=== PATIENT | male | born 1965 | race Caucasian/White ===

== ENCOUNTER 2017-08-15 07:36 | Day surgery (SDC) | payer OTHER ==
--- NOTE | 2017-08-11 16:23 | RAD REPORT ---
EXAM DESCRIPTION: RAD - Chest Pa And Lat (2 Views) - 08/11/2017 4:09 pm CLINICAL HISTORY: Preop chest, pending cardioversion COMPARISON: May 12, 2016 TECHNIQUE: PA and lateral views of the chest were obtained. FINDINGS: The lungs are clear. Heart size is normal and central vasculature is within normal limit s. No pleural effusion or pneumothorax seen. No acute bony finding noted. 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 No aortic abnormality. IMPRESSION: No acute cardiopulmonary process. No significant change from comparison.
[2017-08-11 16:35] LABS: Absolute Lymphocytes (CBC) 3.1 K/uL (0.7-4.9); Absolute Monocytes 0.5 K/uL (0.1-1.3); Absolute Neutrophil 2.9 K/uL (1.8-8.0); Basophils % 0.4 % (0-1.3); Hematocrit 43.6 % (39.6-49.0); Lymphocytes % 46.3 % (15.3-44.8); MCH 29.6 pg (27.0-35.0); MCV 89.6 fL (80-100); MPV 8.7 fL (7.6-11.3); Monocytes % 7.6 % (3.3-12.3); RBC Red Blood Cell Count 4.87 M/uL (4.33-5.43)
[2017-08-11 16:37] LABS: Protime INR 1.39
--- OUTSIDE RECORDS SUMMARY | 2017-08-15 07:38 | XMS REPORT | Clinical Summary ---
:1965 Author Organization [facility] Address [address] [place] [id number] Care Team Providers Name Role Phone Jarod Petty MD Primary Care Provider Allergies Active Allergy Reactions Severity Noted Date Comments Propoxyphene N-Acetaminophen 01/12/2016 Current Medications Prescription Sig. Disp. Refills Start Date End Date Status escitalopram Take 20 mg by 3 01/17/2016 Active (LEXAPRO) 20 MG mouth 2 (two) tablet times a day. primidone (MYSOLINE) 5 tablets 5 12/23/2015 Active 50 MG tablet daily. zolpidem (AMBIEN) 5 Take 5 mg by Active MG tablet mouth nightly. cyclobenzaprine Take 10 mg by 0 02/24/2016 Active (FLEXERIL) 10 mg mouth 3 tablet (three) times a day. meloxicam (MOBIC) 15 03/23/2016 Active mg tablet primidone (MYSOLINE) TAKE 1 TABLET 90 tablet 5 12/13/2016 Active 250 MG tablet BY MOUTH AT BEDTIME primidone (MYSOLINE) Take 1 tablet 90 tablet 3 02/19/2016 Discontinued 250 MG tablet (250 mg 7 total) by mouth nightly. 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 Essential tremor 01/12/2016 Encounters Date Type Specialty Care Team Description 12/13/2016 Refill Neurology Sweetie Pedroza MD after 08/14/2016 Family History Medical History Relation Name Comments Leukemia Father Other Father Cardiopulmonary bypass operation/double bypass Tremor Maternal Grandmother Tremor Maternal Uncle Tremor Mother Other Other family history of tremor involving his maternal grandmother, mother and her fraternal twin brother, as well as his eldest son Tremor Son Relation Name Status Comments Father Maternal Grandmother Maternal Uncle Mother Other Son Social History Tobacco Use Types Packs/Day Years Used Date Never Smoker Alcohol Use Drinks/Week oz/Week Comments No none Sex Assigned at Date Recorded Not on file Last Filed Vital Signs Not on file Plan of Treatment Health Maintenance Due Date Last Done Comments COLON CANCER SCREENING 02/28/2014 SHINGRIX VACCINE (#1) 02/28/2014 INFLUENZA VACCINE 10/12/2017 Results Not on fileafter 08/14/2016 Insurance Payer Benefit Plan / Group Subscriber ID Type Phone Address AET[employer] AET[employer] PPO OPEN CHOICE xxxxxxxxx PPO y [phone] [address]
[2017-08-15] MEDS ORDERED: NA CHLORIDE 0.9% 500 ML ONE (08:54)
[2017-08-15] MEDS ORDERED: MIDAZOLAM HCL 2 MG/2 ML INJ ONE ×2 (09:18→09:28)
--- NOTE | 2017-08-15 11:05 | OP ---
Surgeon: Vince Dash MD Procedure: Direct current cardioversion. Indication: Atrial fib. Procedure In Detail: The patient was brought to the cardiac laborer drying department fasting. There was no prep or drape. He had an IV running, so we could administer drugs. Anterior-posterior paddles were placed o n his chest. Informed consent was done. It was confirmed that he had received Xarelto 12 hours befo re the procedure and that he had nothing to eat or drink this morning. He was sedated with Versed, t itrated to an adequate level of sedation, 12.5 mg was used. A single shock was administered, 200 ana les synchronized the QRS complex. This successfully changed his rhythm to sinus. He will be dischar ge taking his present medicines and we will consider antiarrhythmic drug therapy if AFib recurs. ETHAN/PIPPA Voice ID: [id number] Report ID: [id number]
--- NOTE | 2017-08-15 13:20 | EKG ---
Test Date: 2017-08-15 Test Time: 09:34:00 Supervisor Paper Machine: VERONICA MEASUREMENT RESULTS: Intervals: Rate: 73 MI: 200 QRSD: 84 QT: 400 QTc: 440 [place]: P: 7 MI: 200 QRS: 59 T: 32 INTERPRETIVE STATEMENTS: Sinus rhythm with marked sinus arrhythmia Otherwise normal ECG Compared to ECG 03/09/2005 12:31:51 no significant change from previous ECG Electronically Signed On 08-15-17 13:19:42 CDT by Vince Dash
== END 2017-08-15 10:55 | disposition home or self-care (01) ==
LOC: CCL 07:36
PROVIDERS: ATTEND Internal Medicine
PROC: 5A2204Z Restoration of Cardiac Rhythm, Single (ICD-10-PCS; principal; 2017-08-15)
DX: I48.2 Chronic atrial fibrillation (principal); Z79.01 Long term (current) use of anticoagulants
CPT/HCPCS: 36415; 71046; 80048; 85025; 85610; 85730; 92960; 93005; J2250

== ENCOUNTER 2017-09-05 07:10 | Day surgery (SDC) | payer OTHER ==
--- OUTSIDE RECORDS SUMMARY | 2017-09-05 07:22 | XMS REPORT | Clinical Summary ---
:1965 Author Organization [facility] Address [address] [place] [address] Care Team Providers Name Role Phone Jarod [...] 12/13/2016 Refill Neurology Sweetie Pedroza MD after 09/04/2016 Family History Medical History Relation Name Comments [...] INFLUENZA VACCINE 10/12/2017 Results Not on fileafter 09/04/2016 Insurance Payer Benefit Plan / Group Subscriber ID Type Phone Address [employer]ETNA AET[employer] PPO OPEN CHOICE xxxxxxxxx PPO y [phone] [address]
[2017-09-05] MEDS ORDERED: NA CHLORIDE 0.9% 500 ML ONE (07:30)
[2017-09-05] MEDS ORDERED: MIDAZOLAM HCL 5 MG/5 ML INJ ONE (07:49)
[2017-09-05] MEDS ORDERED: MIDAZOLAM HCL 2 MG/2 ML INJ ONE (07:56)
--- NOTE | 2017-09-05 09:30 | EKG ---
Test Date: 2017-09-05 Test Time: 07:59:20 Manufacturing Executive: VERONICA MEASUREMENT RESULTS: Intervals: Rate: 67 AK: 192 QRSD: 78 QT: 412 QTc: 435 Kemp: P: 16 AK: 192 QRS: 55 T: 54 INTERPRETIVE STATEMENTS: Normal sinus rhythm Normal ECG Compared to ECG 08/15/2017 09:34:00 Sinus arrhythmia no longer present Electronically Signed On 09-05-17 09:30:23 CDT by Vince Dash
--- NOTE | 2017-09-05 19:02 | OP ---
Surgeon: Vince Dash MD Procedure: Direct current cardioversion. Indication: Recurrent atrial fibrillation. Procedure In Detail: The patient was loaded on Multaq, anticoagulated with Xarelto. He came to the matlab developer in a fasting state and gave informed consent. He was sedated with Versed 10 mg titrated to an adequate level of sedation. A single shock 150 joules through anterior-posterior paddles was admi nistered. This resulted in sinus rhythm, successful procedure, and no complications. ETHAN/PIPPA Voice ID: [id number] Report ID: [id number]
== END 2017-09-05 09:40 | disposition home or self-care (01) ==
LOC: CCL 07:10
PROVIDERS: ATTEND Internal Medicine
PROC: 5A2204Z Restoration of Cardiac Rhythm, Single (ICD-10-PCS; principal; 2017-09-05)
DX: I48.2 Chronic atrial fibrillation (principal); Z79.01 Long term (current) use of anticoagulants
CPT/HCPCS: 92960; 93005; J2250

== ENCOUNTER 2018-01-30 08:10 | Day surgery (SDC) | payer OTHER ==
[2018-01-26 13:31] LABS: Potassium 3.6 mmol/L (3.5-5.1)
[2018-01-26 13:42] LABS: Protime INR 1.84
[2018-01-26 15:02] LABS: Absolute Lymphocytes (CBC) 2.7 K/uL (0.7-4.9); Absolute Monocytes 0.5 K/uL (0.1-1.3); Absolute Neutrophil 2.8 K/uL (1.8-8.0); Basophils % 0.6 % (0-1.3); Eosinophils % 1.6 % (0-4.4); Hematocrit 41.8 % (39.6-49.0); Lymphocytes % 44.8 % (15.3-44.8); MCH 30.5 pg (27.0-35.0); MCV 91.2 fL (80-100); MPV 8.9 fL (7.6-11.3); Monocytes % 7.6 % (3.3-12.3); RBC Red Blood Cell Count 4.58 M/uL (4.33-5.43)
--- OUTSIDE RECORDS SUMMARY | 2018-01-30 08:12 | XMS REPORT | Clinical Summary ---
:1965 Author Organization [facility] Address [address] [place] [address] Care Team Providers Name Role Phone Jarod Petty MD Primary Care Provider Allergies Active Allergy Reactions Severity Noted Date Comments Propoxyphene N-Acetaminophen 01/12/2016 Medications Medication Sig Dispensed Refills Start Date End Date Status escitalopram (LEXAPRO) Take 20 mg by 3 01/17/2016 Active 20 MG tablet mouth 2 (two) times a day. primidone (MYSOLINE) 50 5 tablets daily. 5 12/23/2015 Active MG tablet zolpidem (AMBIEN) 5 MG Take 5 mg by 0 Active tablet mouth nightly. cyclobenzaprine Take 10 mg by 0 02/24/2016 Active (FLEXERIL) 10 mg tablet mouth 3 (three) times a day. 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 Last Filed Vital Signs Not on file Plan of Treatment Date Type Specialty Care Team Description 02/01/2018 Hospital Encounter Procedural Leonel Cheng MD Persistent atrial Cardiology [address] [place] [address] 02/01/2018 Surgery Procedural Leonel Cheng MD EP CARDIOVERSION WITH Cardiology [address] [[id number] (CPT)] [address] [place] [address] Health Maintenance Due Date Last Done Comments MMR VACCINES (1 of 1 - Standard 02/28/1965 series) VARICELLA VACCINES (1 of 2 - 2-dose 02/28/1977 adolescent series) COLON CANCER SCREENING 02/28/2014 SHINGRIX VACCINE (1 of 2) 02/28/2014 INFLUENZA VACCINE 10/12/2017 HEPATITIS B VACCINES Aged Out No longer eligible based on patient's age to complete this topic IPV VACCINES Aged Out No longer eligible based on patient's age to complete this topic MENINGOCOCCAL VACCINE Aged Out No longer eligible based on patient's age to complete this topic Results Not on fileafter 01/29/2017 Insurance Payer Benefit Plan / Group Subscriber ID Type Phone Address AETNA AETNA PPO OPEN CHOICE xxxxxxxxx PPO Advance Directives Patient has advance care planning documents on file. For more information, please contact:[place] [address]
[2018-01-30] MEDS ORDERED: NA CHLORIDE 0.9% 500 ML ONE (08:21)
[2018-01-30] MEDS ORDERED: NICARDIPINE HCL 25 MG/10 ML IV ONE (08:54)
[2018-01-30] MEDS ORDERED: HEPARIN 5000 UNIT/ML 1 ML VIAL ONE (08:54)
[2018-01-30] MEDS ORDERED: FENTANYL CITR 100 MCG/2 ML ONE (08:54)
[2018-01-30] MEDS ORDERED: ATROPINE SULF 1 MG/10 ML SYR IV ONE (08:54)
[2018-01-30] MEDS ORDERED: MIDAZOLAM HCL 2 MG/2 ML INJ ONE ×2 (08:54→09:04)
[2018-01-30] MEDS ORDERED: NITROGLYCERIN/D5W 25 MG/250 ML BTL IV ONE (08:55)
[2018-01-30] MEDS ORDERED: NA CHLORIDE 0.9% 0 ML ONE (08:56)
--- NOTE | 2018-01-30 12:36 | OP ---
Surgeon: Vince Dash MD Procedures: Left heart catheterization with coronary left ventricular angiography. Findings: The patient has moderate coronary plaque. There is diffuse lumen irregularity. There is a 50% mid LAD lesion and a 30% RCA lesion. The arteries are mildly ectatic as well as irregular. Ej ection fraction is normal. There is no significant coronary stenosis. All the segmental wall motion is normal and all the pressures are normal. Left ventricular end-diastolic pressure was 11. Procedure In Detail: The patient had an abnormal Cardiolite stress test. He was brought to the [facility] laborer general in a fasting state. He had given informed consent, seem to understand the procedure, it s potential benefits, indications, risks, and agreed to proceed. He was fasting. He had held Xarelt o for 2 days. He was prepared and draped in the usual sterile fashion, sedated with Versed and fenta nyl. Right radial artery was identified using palpation. It was entered using a 21-gauge needle and a 0.021 inch diameter guidewire was used to cannulate the artery. We were then able to place a 6-Fr ench Terumo radial sheath. The sheath was flushed and a radial cocktail was given consisting of claudia rdipine, heparin, and nitroglycerin. A TIG catheter was guided into the ascending aorta using fluoro scopy and a short radius J-tip Glidewire. We used the TIG catheter to angiogram left ventricle, left coronary, right coronary. At the end of the procedure, the catheter was withdrawn after being strai ghtened out with a J-wire. The sheath was flushed, removed, and the arteriotomy closed with a JOSS michael Numerical Control Machine Machinist: Mary Farias. Complications: None. Estimated Blood Loss: 5 cc. ETHAN/PIPPA Voice ID: [id number] Report ID: [id number]
== END 2018-01-30 11:30 | disposition home health service (06) ==
LOC: CCL 08:10
PROVIDERS: ATTEND Internal Medicine
PROC: 4A023N7 Measurement of Cardiac Sampling and Pressure, Left Heart, Percutaneous Approach (ICD-10-PCS; principal; 2018-01-30)
PROC: B201YZZ Plain Radiography of Multiple Coronary Arteries using Other Contrast (ICD-10-PCS; 2018-01-30)
PROC: B205YZZ Plain Radiography of Left Heart using Other Contrast (ICD-10-PCS; 2018-01-30)
DX: R94.39 Abnormal result of other cardiovascular function study (principal); I25.10 Atherosclerotic heart disease of native coronary artery without angina pectoris; I48.2 Chronic atrial fibrillation
CPT/HCPCS: 36415; 80048; 85025; 85610; 85730; 93458; C1893; J0583; J1644; J2250; J3010